=== PATIENT | male | born 1950 | race Caucasian/White ===

== ENCOUNTER 2017-12-06 07:14 | Emergency (ER) | payer BC, MEDICARE ==
[2017-12-06 07:34] VITALS: BP 138/89
--- NOTE | 2017-12-06 07:57 | UC ---
Skin Complaint HPI - HPI Summary HPI Summary: 1.Rosacea x years redness of his face , flaring up worse over the past 7 days requesting abx 2. cough x 3 weeks no fever, no chills, cough is dry , worse at night and when lying down ? hx of GERD , no hx of asthma or wheezing , no hx of PND - History of Current Complaint Chief Complaint: UCSkin Time Seen by Provider: 12/06/17 07:43 Stated Complaint: SKIN COMPLAINT Hx Obtained From: Patient Onset/Duration: Gradual Onset, Lasting Days - 7, Still Present Timing: Constant Onset Severity: Moderate Current Severity: Moderate Location: Face Character: Redness Aggravating Factor(s): Touch Alleviating Factor(s): Nothing Associated Signs & Symptoms: Positive: Negative - Allergy/Home Medications Allergies/Adverse Reactions: Allergies Allergy/AdvReac Type Severity Reaction Status Date / Time No Known Allergies Allergy Verified 12/06/17 07:34 Review of Systems Constitutional: Negative Skin: Rash Eyes: Negative ENT: Negative Respiratory: Negative Cardiovascular: Negative Is Patient Immunocompromised?: No All Other Systems Reviewed And Are Negative: Yes PMH/Surg Hx/FS Hx/Imm Hx Previously Healthy: Yes - Surgical History Surgical History: Yes Surgery Procedure, Year, and Place: B/L KNEE REPLACEMENTs - Family History Known Family History: Positive: None Negative: Diabetes - Social History Alcohol Use: Occasionally Alcohol Amount: PT QUIT USING JUST PRIOR TO Substance Use Type: None Smoking Status (MU): Never Smoked Tobacco When Did the Patient Quit Smoking/Using Tobacco: 40 years ago Physical Exam Triage Information Reviewed: Yes Appearance: Well-Appearing, No Pain Distress, Well-Nourished Vital Signs: Initial Vital Signs Temp 98.6 F 12/06/17 07:28 Pulse 97 12/06/17 07:28 Resp 18 12/06/17 07:28 BP 138/89 12/06/17 07:28 Vital Signs Reviewed: Yes Eyes: Positive: Conjunctiva Clear ENT: Positive: Normal ENT inspection, Hearing grossly normal, Pharynx normal Neck: Positive: Supple, Nontender, No Lymphadenopathy Respiratory: Positive: Chest non-tender, Lungs clear, Normal breath sounds Cardiovascular: Positive: RRR, No Murmur, Pulses Normal Musculoskeletal Exam: Normal Musculoskeletal: Positive: Strength Intact, ROM Intact, No Edema Skin: Positive: rashes - macular rash , + erythema , swelling Course/Dx - Diagnoses Provider Diagnoses: Rosacea. cough Discharge - Discharge Plan Condition: Stable Disposition: HOME Prescriptions: DOXYcycline CAP(*) [DOXYcycline 100MG CAP(*)] 100 mg PO BID #30 cap Omeprazole 40 mg PO DAILY #30 cap Patient Education Materials: Gastroesophageal Reflux Disease (ED), Rosacea (ED) Referrals: No Primary Care Phys,NOPCP [Primary Care Provider] - 7 Days Additional Instructions: chronic cough, maybe due to GERD , will have you take PPI daily ,
== END 2017-12-06 08:02 | disposition home or self-care (01) ==
LOC: UCCORT 07:14
DX: L71.9 Rosacea, unspecified (principal); R05 Cough; Z87.891 Personal history of nicotine dependence
CPT/HCPCS: 99212; G0463

== ENCOUNTER 2018-03-11 09:00 | Emergency (ER) | payer BC ==
[2018-03-11 09:20] VITALS: BP 98/76
--- NOTE | 2018-03-11 09:59 | UC ---
Skin Complaint HPI - HPI Summary HPI Summary: 67 year old male with history of rosacea here for recurrent lesions. Reports started flaring up two days ago. No fever or chills. - History of Current Complaint Chief Complaint: UCRash Time Seen by Provider: 03/11/18 09:15 Stated Complaint: SKIN COMPLAINT (FACIAL) Onset/Duration: Sudden Onset Pain Intensity: 0 Location: Face Aggravating Factor(s): Other Alleviating Factor(s): Cold Compresses Associated Signs & Symptoms: Positive: Negative - Allergy/Home Medications Allergies/Adverse Reactions: Allergies Allergy/AdvReac Type Severity Reaction Status Date / Time No Known Allergies Allergy Verified 12/06/17 07:34 Review of Systems Constitutional: Negative Skin: Rash Eyes: Negative ENT: Negative Respiratory: Negative Cardiovascular: Negative Gastrointestinal: Negative Genitourinary: Negative Motor: Negative Neurovascular: Negative Musculoskeletal: Negative Neurological: Negative Psychological: Negative All Other Systems Reviewed And Are Negative: Yes PMH/Surg Hx/FS Hx/Imm Hx - Surgical History Surgical History: Yes Surgery Procedure, Year, and Place: B/L KNEE REPLACEMENTs - Family History Known Family History: Positive: None Negative: Diabetes - Social History Alcohol Use: None Alcohol Amount: PT QUIT USING JUST PRIOR TO Substance Use Type: None Smoking Status (MU): Never Smoked Tobacco When Did the Patient Quit Smoking/Using Tobacco: 40 years ago Physical Exam Triage Information Reviewed: Yes Appearance: Well-Appearing, No Pain Distress Vital Signs: Initial Vital Signs Temp 36.8 C 03/11/18 09:13 Pulse 98 03/11/18 09:13 Resp 16 03/11/18 09:13 BP 98/76 03/11/18 09:13 Pulse Ox 99 03/11/18 09:13 Vital Signs Reviewed: Yes Eye Exam: Normal Respiratory Exam: Normal Cardiovascular Exam: Normal Skin: Positive: Other - facial erythema with papules or pustules located over nose, cheeks and forhead sparing the facial border. 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 - Billing Disposition and Condition Condition: GOOD Disposition: HOME
== END 2018-03-11 10:05 | disposition home or self-care (01) ==
LOC: UCCORT 09:00
DX: L71.9 Rosacea, unspecified (principal)
CPT/HCPCS: 99212; G0463

== ENCOUNTER 2019-04-13 07:00 | Emergency (ER) | payer BC, MEDICARE ==
[2019-04-13 07:13] VITALS: BP 115/79
--- NOTE | 2019-04-13 07:24 | UC ---
Skin Complaint HPI - HPI Summary HPI Summary: facial skin rash x 2 weeks the area is red, swollen, erythema, irritating , no pain , multiple papular lesions no tenderness, no new soap or detergent has a history of rosacea with a flair up worse with stress, better with doxy - History of Current Complaint Chief Complaint: UCSkin Time Seen by Provider: 04/13/19 07:07 Stated Complaint: SKIN CONCERN Hx Obtained From: Patient Onset/Duration: Gradual Onset, Lasting Weeks - 2, Still Present Timing: Constant Onset Severity: Moderate Current Severity: Moderate Pain Intensity: 0 Location: Face Character: Swelling, Redness, Raised Aggravating Factor(s): Other - stress Alleviating Factor(s): Other - doxy Associated Signs & Symptoms: Negative: Nausea, Vomiting, Weakness, Fever, Tenderness, Red Streaks, Joint Swelling - Allergy/Home Medications Allergies/Adverse Reactions: Allergies Allergy/AdvReac Type Severity Reaction Status Date / Time No Known Allergies Allergy Verified 04/13/19 07:13 PMH/Surg Hx/FS Hx/Imm Hx - Additional Past Medical History Additional PMH: Rosacea - Surgical History Surgical History: Yes Surgery Procedure, Year, and Place: B/L KNEE REPLACEMENTs, left arm melenoma - Family History Known Family History: Positive: None Negative: Diabetes - Social History Alcohol Use: None Alcohol Amount: PT QUIT USING JUST PRIOR TO Substance Use Type: None Smoking Status (MU): Never Smoked Tobacco When Did the Patient Quit Smoking/Using Tobacco: 40 years ago Review of Systems All Other Systems Reviewed And Are Negative: Yes Constitutional: Positive: Negative Skin: Positive: Rash Eyes: Positive: Negative ENT: Positive: Negative Respiratory: Positive: Negative Is Patient Immunocompromised?: No Physical Exam Triage Information Reviewed: Yes Appearance: Well-Appearing, No Pain Distress, Well-Nourished Vital Signs: Initial Vital Signs Temp 97.7 F 04/13/19 07:09 Pulse 103 04/13/19 07:09 Resp 16 04/13/19 07:09 BP 115/79 04/13/19 07:09 Pulse Ox 100 04/13/19 07:09 Vital Signs Reviewed: Yes Eye Exam: Normal Eyes: Positive: Conjunctiva Clear ENT: Positive: Normal ENT inspection, Hearing grossly normal, Pharynx normal Neck: Positive: Supple, Nontender, No Lymphadenopathy Respiratory: Positive: Chest non-tender, Lungs clear, Normal breath sounds Cardiovascular: Positive: RRR, No Murmur, Pulses Normal Skin: Positive: Rashes - maculopapulary facial rash , no tenderness, hx of Rosacea Course/Dx - Diagnoses Provider Diagnosis: Rosacea Discharge - Sign-Out/Discharge Documenting (check all that apply): Patient Departure All imaging exams completed and their final reports reviewed: No Studies - Discharge Plan Condition: Stable Disposition: HOME Prescriptions: DOXYcycline CAP(*) [DOXYcycline 100MG CAP(*)] 100 mg PO BID #20 cap Patient Education Materials: Rosacea (ED) Referrals: No Primary Care Phys,NOPCP [Primary Care Provider] - If Needed - Billing Disposition and Condition Condition: STABLE Disposition: Home
== END 2019-04-13 07:23 | disposition home or self-care (01) ==
LOC: UCCORT 07:00
DX: L71.9 Rosacea, unspecified (principal)
CPT/HCPCS: 99212; G0463